=== PATIENT | female | born 2000 ===

== ENCOUNTER 2024-04-11 08:23 | Outpatient (CLI) | payer BC | END 2024-04-11 08:24 | disposition home or self-care (01) | LOC: NM 08:23 | PROVIDERS: ATTEND Internal Medicine Gastroenterology | DX: R11.2 Nausea with vomiting, unspecified (principal); F17.200 Nicotine dependence, unspecified, uncomplicated; K30 Functional dyspepsia | CPT/HCPCS: 78264; A9541 ==